=== PATIENT | male | born 1975 | race Caucasian/White ===

== ENCOUNTER 2024-07-15 20:27 | Emergency (ER) | payer MEDICAID ==
[~2024-07-15] VITALS: Ht 170.2 cm; Wt 81.0 kg
[2024-07-15 20:32] VITALS: BP 150/99; PULSE 97; RESP 16; TEMP 98.6; O2SAT 99
== END 2024-07-16 00:20 | disposition left against medical advice (07) ==
LOC: ER 20:27
DX: R07.9 Chest pain, unspecified (principal); Z53.21 Procedure and treatment not carried out due to patient leaving prior to being seen by health care provider